=== PATIENT | male | born 1975 | race Caucasian/White ===

== ENCOUNTER 2017-06-14 10:24 | Emergency (ER) | payer SELFPAY ==
[2017-06-14 10:37] VITALS: BP 127/82
--- NOTE | 2017-06-14 10:48 | UC ---
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 Pt estimates the temperature is ~ 500 F. Pt estimates that the exposure to heat was less than 1 second. Immediately placed finger under cool running water. Tetanus is ~ 7 years ago - History of Current Complaint Chief Complaint: UCBurn Stated Complaint: RIGHT HAND BURN W/C Time Seen by Provider: 06/14/17 10:28 Hx Obtained From: Patient Occurred: Minutes Ago - 90 Length of Exposure: Seconds - less than 1 second Onset Severity: Moderate Current Severity: Mild Location: RUE - right 4th finger Character: Direct Thermal Contact - molder wax ball nozzle Aggravating: Other - touch Alleviating: Cool Soaks Occupational Injury: Yes - Allergy/Home Medications Allergies/Adverse Reactions: Allergies Allergy/AdvReac Type Severity Reaction Status Date / Time Penicillins Allergy Hives Verified 06/14/17 10:29 Home Medications: Home Medications Ibuprofen [Advil] 800 mg PO ONCE PRN 06/14/17 [History Confirmed 06/14/17] PMH/Surg Hx/FS Hx/Imm Hx Previously Healthy: Yes - Surgical History Surgical History: None - Family History Known Family History: Positive: Cardiac Disease - Social History Occupation: Employed Full-time Lives: With Family Alcohol Use: Occasionally Substance Use Type: None Smoking Status (MU): Current Every Day Smoker Type: Smokeless Tobacco Amount Used/How Often: 4 cans weekly Have You Smoked in the Last Year: No - Immunization History Most Recent Tetanus Shot: 7 years ago Review of Systems Constitutional: Negative Skin: Other - burn right 4th finger tip Eyes: Negative ENT: Negative Respiratory: Negative Cardiovascular: Negative Gastrointestinal: Negative Genitourinary: Negative Motor: Negative Neurovascular: Negative Musculoskeletal: Myalgia - right 4th Neurological: Negative Psychological: Negative All Other Systems Reviewed And Are Negative: Yes Physical Exam Triage Information Reviewed: Yes Appearance: Well-Appearing Vital Signs: Initial Vital Signs Temp 98.6 F 06/14/17 10:32 Pulse 86 06/14/17 10:32 Resp 16 06/14/17 10:32 BP 127/82 06/14/17 10:32 Pulse Ox 97 06/14/17 10:32 Vital Signs Reviewed: Yes Eye Exam: Normal Neck exam: Normal Respiratory Exam: Normal Cardiovascular Exam: Normal Musculoskeletal Exam: Normal Neurological Exam: Normal Psychological Exam: Normal Skin Exam: Other - blister to right 4th finger, intact Burn Calculation - [place] Formula for Fluid Resuscitation Weight: 102.058 kg 24 -Hour Fluid Replacement: 0.0 Course/Dx Burn - Differential Dx - Burn Differential Diagnoses: Direct Contact Thermal Burn - second degree right 4th finger, blister intact tetanus not UTD - Diagnoses Clinic Provider Diagnoses: second degree burn right 4th finger Discharge - Discharge Plan Condition: Stable Disposition: HOME Prescriptions: Sulfamethox/Trimethoprim DS* [Bactrim DS 800/160 TAB*] 1 tab PO BID #10 tab Patient Education Materials: Second Degree Burn (ED) Referrals: Jeromy Feliz MD [Primary Care Provider] - If Needed
[2017-06-14] MEDS ORDERED: Tetan/Diph/Pertus SYR(Tdap)* 0.5 ML SYR(BOOSTRIX) use SYR IM ONE (10:51)
== END 2017-06-14 11:07 | disposition home or self-care (01) ==
LOC: UCCORT 10:24
DX: T23.221A Burn of second degree of single right finger (nail) except thumb, initial encounter (principal); X19.XXXA Contact with other heat and hot substances, initial encounter; Y93.9 Activity, unspecified; Y92.89 Other specified places as the place of occurrence of the external cause; Y99.0 Civilian activity done for income or pay; Z23 Encounter for immunization; Z88.0 Allergy status to penicillin; F17.220 Nicotine dependence, chewing tobacco, uncomplicated
CPT/HCPCS: 90471; 90715; 99212; G0463

== ENCOUNTER 2018-10-08 10:07 | Emergency (ER) | payer BC ==
[2018-10-08 11:10] VITALS: BP 138/76
--- NOTE | 2018-10-08 11:30 | ED ---
Throat Pain/Nasal Congestion - HPI Summary HPI Summary: 43 yr old male with the complaint of runny nose, post nasal drip, coughing up yellow sputum. Denies fever, chills. Denies SOB. He has had sinus pressure and post nasal drip for over 2 weeks. - History of Current Complaint Chief Complaint: UCRespiratory Time Seen by Provider: 10/08/18 11:12 - Allergies/Home Medications Allergies/Adverse Reactions: Allergies Allergy/AdvReac Type Severity Reaction Status Date / Time amoxicillin Allergy Hives Verified 10/08/18 11:08 Penicillins Allergy Hives Verified 10/08/18 11:08 PMH/Surg Hx/FS Hx/Imm Hx Infectious Disease History: No Infectious Disease History: Denies: Traveled Outside the [place] in Last 30 Days - Family History Known Family History: Positive: Cardiac Disease - Social History Alcohol Use: Occasionally Substance Use Type: Reports: None Smoking Status (MU): Current Every Day Smoker Type: Smokeless Tobacco Amount Used/How Often: 4 cans weekly Have You Smoked in the Last Year: No Review of Systems Positive: Sore Throat, Ear Ache, Nasal Discharge Positive: Cough All Other Systems Reviewed And Are Negative: Yes Physical Exam Triage Information Reviewed: Yes Vital Signs On Initial Exam: Initial Vitals Temp Pulse Resp BP Pulse Ox 97.4 F 76 16 138/76 98 10/08/18 11:07 10/08/18 11:07 10/08/18 11:07 10/08/18 11:07 10/08/18 11:07 Vital Signs Reviewed: Yes Appearance: Positive: Well-Appearing, No Pain Distress Skin: Positive: Warm, Skin Color Reflects Adequate Perfusion Head/Face: Positive: Normal Head/Face Inspection Eyes: Positive: EOMI ENT: Positive: Pharynx normal, Nasal congestion, TMs normal, Sinus tenderness Neck: Positive: Supple, Nontender Respiratory/Lung Sounds: Positive: Clear to Auscultation, Breath Sounds Present Cardiovascular: Positive: RRR. Negative: Murmur Abdomen Description: Positive: Nontender Musculoskeletal: Positive: Strength/ROM Intact Neurological: Positive: Sensory/Motor Intact, Alert, Oriented to Person Place, Time, CN Intact II-III Psychiatric: Positive: Normal Diagnostics - Vital Signs Vital Signs Temp Pulse Resp BP Pulse Ox 10/08/18 11:07 97.4 F 76 16 138/76 98 - Laboratory Lab Statement: Any lab studies that have been ordered have been reviewed, and results considered in the medical decision making process. EENT Course/Dx - Course Course Of Treatment: 43 yr old male with Sinusitis. Rx with Biaxin - Diagnoses Provider Diagnoses: Sinusitis, Hypertension Discharge - Sign-Out/Discharge Documenting (check all that apply): Patient Departure All imaging exams completed and their final reports reviewed: No Studies - Discharge Plan Condition: Good Disposition: HOME Prescriptions: Clarithromycin TAB* [Biaxin 500 MG TAB*] 500 mg PO BID #20 tab Patient Education Materials: Sinusitis (ED) Referrals: Jeromy Feliz MD [Primary Care Provider] - 2 Days - Billing Disposition and Condition Condition: GOOD Disposition: Home
== END 2018-10-08 11:45 | disposition home or self-care (01) ==
LOC: UCCORT 10:07
DX: J32.9 Chronic sinusitis, unspecified (principal); I10 Essential (primary) hypertension; Z88.0 Allergy status to penicillin; F17.210 Nicotine dependence, cigarettes, uncomplicated
CPT/HCPCS: 99212; G0463

== ENCOUNTER 2018-10-16 07:04 | Emergency (ER) | payer BC ==
[2018-10-16 07:20] VITALS: BP 124/77
--- NOTE | 2018-10-16 07:38 | UC ---
Respiratory Complaint HPI - HPI Summary HPI Summary: 43 y/o male with 3 weeks hx of cough cough is dry , no sputum , worse with deep breathing and cold air , nothing makes it better no fever, no chills , no nasal congestion , + pnd - History of Current Complaint Chief Complaint: UCRespiratory Stated Complaint: RECHECK COUGH Time Seen by Provider: 10/16/18 07:13 Hx Obtained From: Patient Onset/Duration: Gradual Onset, Lasting Weeks - 3, Still Present Timing: Constant Severity Initially: Moderate Severity Currently: Severe Pain Intensity: 0 Character: Cough: Nonproductive Aggravating Factors: Exertion, Deep Breaths Alleviating Factors: Nothing Associated Signs And Symptoms: Negative: Dyspnea, Fever, Chills, Pleuritic Chest Pain, Wheezing, Hemoptysis, Dizziness, Calf Pain, Calf Swelling, Edema, URI, Nasal Congestion, Hoarseness, Sinus Discomfort - Allergies/Home Medications Allergies/Adverse Reactions: Allergies Allergy/AdvReac Type Severity Reaction Status Date / Time amoxicillin Allergy Hives Verified 10/08/18 11:08 Penicillins Allergy Hives Verified 10/08/18 11:08 clarithromycin AdvReac GI Upset Verified 10/16/18 07:26 Home Medications: Home Medications Day Time Cough 1 dose PO Q4H PRN 10/16/18 [History Confirmed 10/16/18] Dextromethorphan Hb/Doxylamine [Gnp Night Time Cough] 1 liq PO Q4H PRN 10/16/18 [History Confirmed 10/16/18] PMH/Surg Hx/FS Hx/Imm Hx Previously Healthy: Yes - Surgical History Surgical History: None - Family History Known Family History: Positive: Cardiac Disease - Social History Alcohol Use: Occasionally Substance Use Type: None Smoking Status (MU): Never Smoked Tobacco Type: Smokeless Tobacco Amount Used/How Often: 4 cans weekly Have You Smoked in the Last Year: No - Immunization History Most Recent Tetanus Shot: 7 years ago Review of Systems All Other Systems Reviewed And Are Negative: Yes Constitutional: Positive: Negative Skin: Positive: Negative Eyes: Positive: Negative ENT: Positive: Negative Respiratory: Positive: Cough Cardiovascular: Positive: Negative Gastrointestinal: Positive: Negative Is Patient Immunocompromised?: No Physical Exam Appearance: Well-Appearing, No Pain Distress, Well-Nourished Vital Signs: Initial Vital Signs Temp 97.8 F 10/16/18 07:15 Pulse 76 10/16/18 07:15 Resp 16 10/16/18 07:15 BP 124/77 10/16/18 07:15 Pulse Ox 98 10/16/18 07:15 Vital Signs Reviewed: Yes Eye Exam: Normal Eyes: Positive: Conjunctiva Clear ENT: Positive: Normal ENT inspection, Hearing grossly normal, Pharynx normal Neck exam: Normal Neck: Positive: Supple, Nontender, No Lymphadenopathy Respiratory: Positive: Chest non-tender, Lungs clear, Normal breath sounds Cardiovascular: Positive: RRR, No Murmur, Pulses Normal Abdominal Exam: Normal Abdomen Description: Positive: Nontender Skin Exam: Normal UC Diagnostic Evaluation - Laboratory O2 Sat by Pulse Oximetry: 98 Respiratory Course/Dx - Differential Dx/Diagnosis Provider Diagnosis: Viral bronchitis Discharge - Sign-Out/Discharge Documenting (check all that apply): Patient Departure All imaging exams completed and their final reports reviewed: No Studies - Discharge Plan Condition: Stable Disposition: HOME Prescriptions: Albuterol HFA INHALER* [Ventolin HFA Inhaler*] 2 puff INH Q6H PRN #1 mdi PRN Reason: Cough Codeine Phosphate/Guaifenesin [Cheratussin AC] 10 ml PO Q8H #120 ml MDD 30 ml predniSONE TAB* [Deltasone 20 MG TAB*] 40 mg PO DAILY #10 tab Patient Education Materials: Acute Bronchitis (ED) Referrals: Jeromy Feliz MD [Primary Care Provider] - 7 Days - Billing Disposition and Condition Condition: STABLE Disposition: Home
== END 2018-10-16 07:39 | disposition home or self-care (01) ==
LOC: UCCORT 07:04
DX: J20.8 Acute bronchitis due to other specified organisms (principal); F17.220 Nicotine dependence, chewing tobacco, uncomplicated
CPT/HCPCS: 99212; G0463

== ENCOUNTER 2019-10-10 13:42 | Emergency (ER) | payer BC ==
[2019-10-10 14:23] VITALS: BP 145/81
--- NOTE | 2019-10-10 14:31 | UC ---
Respiratory Complaint HPI - HPI Summary HPI Summary: Patient presents to urgent care for evaluation of ongoing cough that he's had for 2 months. Patient states initially it was coarse with green sputum. Patient states he did have some blood-tinged sputum in early September. Patient states since that time he just has a cough that keeps him up at night. Patient denies any fevers or chills. No nausea vomiting. Patient states he has had some post-tussive gagging. Patient is able to eat and drink with decreased appetite. No diarrhea. Patient does have sick contacts at home. He did get the flu vaccine. 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 Patient's been using [id number] cough never pneumonia. Patient does not have lung disease. Patient does not smoke. Patient's medications in the EMR by the triage nurse were reviewed this visit. - History of Current Complaint Chief Complaint: UCRespiratory Stated Complaint: COUGH Time Seen by Provider: 10/10/19 14:31 Hx Obtained From: Patient, Other: - Jessika Jacobs | Reference #: [id number] Pain Intensity: 1 - Allergies/Home Medications Allergies/Adverse Reactions: Allergies Allergy/AdvReac Type Severity Reaction Status Date / Time amoxicillin Allergy Hives Verified 10/10/19 14:11 Penicillins Allergy Hives Verified 10/10/19 14:11 clarithromycin AdvReac GI Upset Verified 10/10/19 14:11 Home Medications: Home Medications Ibuprofen TAB* [Motrin TAB* 400 MG] 400 mg PO ONCE PRN 10/10/19 [History Confirmed 10/10/19] PMH/Surg Hx/FS Hx/Imm Hx Previously Healthy: Yes - Surgical History Surgical History: None - Family History Known Family History: Positive: Cardiac Disease - Social History Occupation: Employed Full-time Lives: With Family Alcohol Use: Occasionally Substance Use Type: None Smoking Status (MU): Current Some Day Smoker Type: Smokeless Tobacco Amount Used/How Often: 4 cans weekly Have You Smoked in the Last Year: No - Immunization History Most Recent Tetanus Shot: 7 years ago Review of Systems All Other Systems Reviewed And Are Negative: Yes Constitutional: Positive: Fatigue Skin: Positive: Negative Eyes: Positive: Negative ENT: Positive: Negative, Sinus Congestion Respiratory: Positive: Cough Cardiovascular: Positive: Negative Gastrointestinal: Positive: Negative Genitourinary: Positive: Negative Motor: Positive: Negative Is Patient Immunocompromised?: No Physical Exam - Summary Physical Exam Summary: Vital Signs Reviewed: Yes A+Ox3, coarse, persistent cough Eyes: Conjunctiva Clear, SHADIA. EOM intact and full ENT: Hearing grossly normal TM x 2 clear, mmoist, uvula midline, no exudate, no erythema Neck: Positive: Supple Respiratory: Positive: No respiratory distress, No accessory muscle use coarse cough, scattered expiratory wheeze,rhoni right base Cardiovascular: RRR nl s1, s2 no m/r CBT <2 sec abd soft + BS nt/nd no guarding, no distension Musculoskeletal Exam: BENJAMIN x 4 without difficulty Strength Intact, ROM Intact Neurological: Positive: Alert, + sensation throughout Psychological: Positive: Normal Response To examiner Skin: Positive: no rash, no ecchymosis Triage Information Reviewed: Yes Vital Signs: Initial Vital Signs Temp 100.6 F 10/10/19 14:17 Pulse 114 10/10/19 14:17 Resp 18 10/10/19 14:17 BP 145/81 10/10/19 14:17 Pulse Ox 98 10/10/19 14:17 Diagnostics - Radiology No standard instances Radiology Interpretation Completed By: Radiologist - Patient Name: TAYE MARTIN Medical Record#: [id number] Ordering Physician: Jessika Jacobs MD Acct.#: [id number] : 1974 Age: 44 Sex: M Location: [facility] Exam Date: 10/10/19 1441 ADM Status: REG ER Order Information: CHEST PA & LAT 2 VWS Accession Number : [id number] CPT: 76318 INDICATION: Cough, right base rhonchi COMPARISON: There are no relevant prior studies available for comparison. TECHNIQUE: Dual-energy PA and lateral views of the chest were obtained. FINDINGS: The lungs are clear. There is no pleural effusion. The cardiomediastinal silhouette is within normal limits. The upper abdominal contents are normal. Osseous structures are unremarkable. Fashion: No acute cardiopulmonary process by radiograph. <Electronically signed by Chago Leonard MD in [place]> 10/10/19 1507 Dictated By: Chago Leonard MD Dictated Date/Time: 1506 Transcribed Date/Time: 10/10/19 1506 Copy to: CC:Jeromy Feliz MD ; Jessika Jacobs MD Imaging - [facility] Imaging - [facility] Imaging - [facility] [address] [facility] [place], [place] [id number] [place] [id number] [place] [id number] ph ([phone]) ph ([phone]) ph ([phone]) This report is only to be considered final once signed by the Provider(s) as displayed in the "<Electronically Signed by >" field (s). Absence of a signature indicates the report is in a draft status and still needs to be finalized. In the event this document was created by someone other than the signing Provider, the individual initiating the document will be listed in the "Entered by:" or "Dictated by:" segundo. 1 of 1 Re-Evaluation - Re-Evaluation First Eval Change: Improved - Patient he feels better following the nebulizer. Patient's lungs don't improve with decreased wheezing. Decreased coughing. We'll prescribe MDI, antibiotic, prednisone and Naprosyn with codeine. I stop was checked. Reviewed with patient. Precautions. Patient denies personal or family history of opiate dependence. Respiratory Course/Dx - Course Course Of Treatment: Pt presents to reporting ongoing cough for 2 months. Pt with coarse cough initially was productive green-yellow sputum with some blood tinge. Now is more clear but getting worse again. Patient denies any fevers or chills. Patient does have sick contacts. Patient shortness of breath otherwise coughing. On exam vital signs are stable. Patient was slightly elevated blood pressure recommend follow-up with PCP. Patient has diffuse respiratory expiratory wheezing with some rhonchi and lipase. We'll check chest x-ray for pneumonia. We'll give a DuoNeb. Anticipate prednisone steroids and probably antibiotics. Return precautions discussed. Secretion precautions discussed. Patient comfortable and agreeable with plan. Will also check I stop and write for some Tylenol with codeine if I-stop. Patient was slight elevation of blood pressure. Recommend follow-up with PCP - Differential Dx/Diagnosis Provider Diagnosis: Acute bronchitis Discharge ED - Sign-Out/Discharge Documenting (check all that apply): Patient Departure All imaging exams completed and their final reports reviewed: Yes - Discharge Plan Condition: Stable Disposition: HOME Prescriptions: Albuterol HFA INHALER* [Ventolin HFA Inhaler*] 2 puff INH Q4H PRN #1 mdi PRN Reason: wheeze Codeine Phosphate/Guaifenesin [Guaiatussin AC Liquid] 10 ml PO Q6HR PRN #120 liquid MDD 40 PRN Reason: Cough DOXYcycline CAP(*) [DOXYcycline 100MG CAP(*)] 100 mg PO BID #20 cap predniSONE TAB* [Deltasone TAB*] 50 mg PO DAILY #5 tab Patient Education Materials: Acute Bronchitis (ED) Referrals: Jeromy Feliz MD [Primary Care Provider] - Additional Instructions: -Take antibiotics exactly as prescribed until gone -Use your albuterol puffer - 2 puffs every 4 hours for the next 2 days - then as needed -Stay well hydrated - avoid excess caffeine and all alcohol - eat regular, healthy meals - - humidify the air in the room where you sleep - boil water, run a hot steam shower, vaporizer, cups of water by heat register - okay to take over the counter decongestant and cough medication -- These infections are spread by secretions - do NOT share eating or drinking utensils - clean items you share with other people such as cell phones, computer mouse, TV remote, computer tablets,etc.. Once you have been antibiotics for 2 days, change your toothbrush and your pillowcase. - Okay to take over the counter cough and decongestant medication. you have been given a prescription for cough medication with codeine. This is a narcotic (opiate) do not drive, operate machinery, or drink alcohol while taking this medication - Pain: Okay to alternate ibuprofen (Advil, Motrin) and Tylenol every 3 hours for pain or fever. Take with food. Do NOT take for more than 4-5 days. -Contact your doctor to arrange a follow-up appointment this week. Call your doctor, return here or go to the emergency department with any questions or concerns - Billing Disposition and Condition Condition: STABLE Disposition: Home
[2019-10-10] MEDS ORDERED: Albuterol/Ipratropium NEB.SOL* Albuterol 2.5 MG/Ipratropium 0.5 MG 3 ML INH ONE (14:42)
== END 2019-10-10 15:25 | disposition home or self-care (01) ==
LOC: UCCORT 13:42
DX: J20.9 Acute bronchitis, unspecified (principal); F17.290 Nicotine dependence, other tobacco product, uncomplicated; Z88.0 Allergy status to penicillin; Z88.1 Allergy status to other antibiotic agents
CPT/HCPCS: 71046; 99212; A9270-GY; G0463

== ENCOUNTER 2019-10-17 11:55 | Emergency (ER) | payer BC ==
[2019-10-17 12:51] VITALS: BP 117/70
--- NOTE | 2019-10-17 13:41 | ED ---
Respiratory - HPI Summary HPI Summary: 44 yr old male with the complaint of coughing. Onset of cough beginning of August. The cough is productive at times. He is a non smoker. He had a chest xray last week that was negative. he was put on steroids, doxy and mdi, and he says the cough got better, but since being off the prednisone his cough is coming back. - History of Current Complaint Chief Complaint: UCRespiratory Stated Complaint: RECHECK DX:BRONCHITIS,CHEST CONGESTION Time Seen by Provider: 10/17/19 13:11 Pain Intensity: 0 - Allergy/Home Medications Allergies/Adverse Reactions: Allergies Allergy/AdvReac Type Severity Reaction Status Date / Time amoxicillin Allergy Hives Verified 10/17/19 12:46 Penicillins Allergy Hives Verified 10/17/19 12:46 clarithromycin AdvReac GI Upset Verified 10/17/19 12:46 Home Medications: Home Medications Ibuprofen TAB* [Advil TAB*] 800 mg PO Q8H PRN 10/17/19 [History Confirmed ] PMH/Surg Hx/FS Hx/Imm Hx Infectious Disease History: No Infectious Disease History: Denies: Traveled Outside the [place] in Last 30 Days - Family History Known Family History: Positive: Cardiac Disease - Social History Occupation: Employed Full-time Alcohol Use: Occasionally Substance Use Type: Reports: None Smoking Status (MU): Heavy Every Day Tobacco Smoker Type: Smokeless Tobacco Amount Used/How Often: 1/2 can daily Length of Time of Smoking/Using Tobacco: Since Age "twenties" Have You Smoked in the Last Year: No Review of Systems Constitutional: Negative Positive: Cough All Other Systems Reviewed And Are Negative: Yes Physical Exam Triage Information Reviewed: Yes Vital Signs On Initial Exam: Initial Vitals Temp Pulse Resp BP Pulse Ox 98.4 F 76 16 117/70 99 10/17/19 12:43 10/17/19 12:43 10/17/19 12:43 10/17/19 12:43 10/17/19 12:43 Vital Signs Reviewed: Yes Appearance: Positive: Well-Appearing, No Pain Distress Skin: Positive: Warm, Skin Color Reflects Adequate Perfusion Head/Face: Positive: Normal Head/Face Inspection Eyes: Positive: EOMI ENT: Positive: Pharynx normal Neck: Positive: Nontender Respiratory/Lung Sounds: Positive: Clear to Auscultation, Breath Sounds Present Cardiovascular: Positive: RRR. Negative: Murmur Abdomen Description: Negative: Distended Musculoskeletal: Positive: Strength/ROM Intact Neurological: Positive: Sensory/Motor Intact, Alert, Oriented to Person Place, Time, CN Intact II-III Psychiatric: Positive: Normal Diagnostics - Vital Signs Vital Signs Temp Pulse Resp BP Pulse Ox 10/17/19 12:43 98.4 F 76 16 117/70 99 - Laboratory Lab Statement: Any lab studies that have been ordered have been reviewed, and results considered in the medical decision making process. Disposition - Course Course Of Treatment: 44 yr old with bronchospatic coughing. Will give 3 more days pred, add tessalon. Recommend follow up with pMD and if not better in three days got to the ER. - Diagnoses Provider Diagnoses: Cough Discharge ED - Sign-Out/Discharge Documenting (check all that apply): Patient Departure All imaging exams completed and their final reports reviewed: No Studies - Discharge Plan Condition: Good Disposition: HOME Prescriptions: Benzonatate CAP* [Tessalon 100 MG CAP*] 100 mg PO TID #14 cap predniSONE TAB* [Deltasone 20 MG TAB*] 40 mg PO DAILY #6 tab Patient Education Materials: Upper Respiratory Infection (ED) Referrals: Jeromy Feliz MD [Primary Care Provider] - 2 Days - Billing Disposition and Condition Condition: GOOD Disposition: Home
== END 2019-10-17 13:38 | disposition home or self-care (01) ==
LOC: UCCORT 11:55
DX: R05 Cough (principal); F17.290 Nicotine dependence, other tobacco product, uncomplicated; Z88.0 Allergy status to penicillin; Z88.1 Allergy status to other antibiotic agents
CPT/HCPCS: 99212; G0463